=== PATIENT | female | born 1980 | race Caucasian/White ===

== ENCOUNTER → 2017-01-03 | Outpatient (CLI) | payer OTHER ==
--- NOTE | 2017-01-03 10:39 | MM ---
Reason for exam: clinical finding. Last mammogram was performed 5 years ago. History: Family history of breast cancer in maternal aunt and breast cancer in maternal grandmother. Indicated problem(s): pain in the right breast. Physical Findings: Nurse did not find any significant physical abnormalities on exam. MG Diagnostic Mammo w CAD FRIDA Bilateral CC and MLO view(s) were taken. Prior study comparison: January 10, 2012, CAD bilateral diagnostic mammogram. The breast tissue is heterogeneously dense. This may lower the sensitivity of mammography. Asymmetric breast tissue, greater in the right breast. No significant new findings when compared with previous films. These results were verbally communicated with the patient and result sheet given to the patient on 01/03/17. ASSESSMENT: Benign, BI-RAD 2 RECOMMENDATION: Routine screening mammogram of both breasts at age 42. Manage patient on a clinical basis.
--- NOTE | 2017-01-03 10:42 | USB ---
Reason for exam: clinical finding. History: Family history of breast cancer in maternal aunt and breast cancer in maternal grandmother. US Breast RT Right breast ultrasound includes all four quadrants, the retroareolar region and axilla. Finding demonstrate no cystic or solid lesion seen. These results were verbally communicated with the patient and result sheet given to the patient on 01/03/17. ASSESSMENT: Negative, BI-RAD 1 RECOMMENDATION: Routine screening mammogram of both breasts at age 42. Manage patient on a clinical basis.
== END | disposition home or self-care (01) ==
LOC: RADMAMWWP 08:50
PROVIDERS: ATTEND Internal Medicine
DX: N64.4 Mastodynia (principal); N64.89 Other specified disorders of breast
CPT/HCPCS: 76641; G0204

== ENCOUNTER 2018-01-30 23:41 | Emergency (ER) | payer OTHER ==
[2018-01-30 23:47] VITALS: BP 131/84; PULSE 100; RESP 18; TEMP 98.2
--- NOTE | 2018-01-31 00:20 | ED ---
Extremity Problem HPI - General Chief complaint: Extremity Problem,Nontraumatic Stated complaint: wrist pain Time Seen by Provider: 01/30/18 23:52 Source: patient, RN notes reviewed Mode of arrival: ambulatory Limitations: no limitations - History of Present Illness Initial comments: This is a 37-year-old female presents to the emergency department with chief complaint of wrist pain. Patient states that "the veins and mild left forearm hurt." Patient states that she is concerned for a blood clot. She states that she consistently uses a computer and keyboard. She states that she recently got a new keyboard that it has been pressing into her left wrist. She states that for the past 2 days she has noticed tenderness along the vein in her left forearm. Patient denies any specific injuries or trauma. She denies any history of blood clots. Denies fevers or chills, chest pain or shortness of breath, abdominal pain, nausea or vomiting. - Related Data Allergies Allergy/AdvReac Type Severity Reaction Status Date / Time nickel Allergy Rash/Hives Verified 01/30/18 23:47 Penicillins AdvReac Unknown Verified 01/30/18 23:47 Review of Systems ROS Statement: Those systems with pertinent positive or pertinent negative responses have been documented in the HPI. ROS Other: All systems not noted in ROS Statement are negative. Past Medical History Past Medical History: No Reported History History of Any Multi-Drug Resistant Organisms: None Reported Past Surgical History: Tubal Ligation Past Psychological History: No Psychological Hx Reported Smoking Status: Current every day smoker Past Alcohol Use History: Occasional Past Drug Use History: Marijuana General Exam - General Exam Comments Initial Comments: General: Awake and alert, well-developed; in no apparent distress. HEENT: Head atraumatic, normocephalic. Pupils are equal, round and reactive to light. Extraocular movements intact. Oropharynx moist without erythema or exudate. Neck: Supple. Normal ROM. Cardiovascular: Regular rate and rhythm. No murmurs, rubs or gallops. Chest symmetrical. Respiratory: Lungs clear to auscultation bilaterally. No wheezes, rales or rhonchi. Normal respiratory effort with no use of accessory muscles. Musculoskeletal: Normal range of motion of the left elbow and wrist. Patient experiences a "pulling sensation" with flexion and extension of the left wrist. There is tenderness along the flexor tendons in the left forearm. No erythema , swelling, warmth noted. No palpable cords. No obvious gross deformities. Sensation is intact. Radial pulses are 2+ equal and palpable bilaterally. Skin: [place], warm and dry without rashes or lesions. Neurological: Alert and oriented x3. CN II-XII grossly intact. Speech is fluent and answers are appropriate. No focal neuro deficits. Psychiatric: Normal mood and affect. No overt signs of depression or anxiety noted. Limitations: no limitations Course Vital Signs 01/30/18 23:43 Temperature 98.2 F Pulse Rate 100 Respiratory 18 Rate Blood Pressure 131/84 O2 Sat by Pulse 100 Oximetry Medical Decision Making - Medical Decision Making This is a 37-year-old female who presents to the emergency department with chief complaint of left wrist pain. She denies any specific injuries or trauma. She states that she does work at her computer and is consistently using her keyboard. She states that she recently got new keyboard that has been pressing into her left wrist. She does report a history of carpal tunnel syndrome. There is tenderness along the flexor tendons of the left forearm. No erythema, swelling or warmth noted. She is neurovascularly intact. Likely suffering from tendinitis. Recommended rest, ice, NSAIDs and compression. Vital signs are stable and patient is in no acute distress patient will be discharged home at this time. All questions answered. Disposition Clinical Impression: Tendinitis Disposition: HOME SELF-CARE Condition: Good Instructions: Tendinitis (ED), RICE Therapy (ED) Additional Instructions: Please follow up with primary care provider within 1-2 days. Return to emergency department if symptoms should worsen or any concerns arise. Is patient prescribed a controlled substance at d/c from ED?: No Referrals: Jaida River MD [Primary Care Provider] - 1-2 days Time of Disposition: 00:20
== END 2018-01-31 00:30 | disposition home or self-care (01) ==
LOC: EC 23:41
DX: M77.9 Enthesopathy, unspecified (principal); F17.200 Nicotine dependence, unspecified, uncomplicated; Z87.39 Personal history of other diseases of the musculoskeletal system and connective tissue; Z91.048 Other nonmedicinal substance allergy status; Z88.0 Allergy status to penicillin
CPT/HCPCS: 99283

== ENCOUNTER → 2018-07-07 | Outpatient (CLI) | payer OTHER ==
--- NOTE | 2018-07-08 11:51 | XR ---
First digit right hand HISTORY: Trauma and pain 2 views of the first digit of the right hand. There is some joint space loss at the carpometacarpal joint of the first digit. Alignment and bone mi neralization maintained. No fracture or dislocation. IMPRESSION: Suspect some mild osteoarthritis. MRI could be performed to evaluate for soft tissue inju ry or marrow edema as indicated.
== END ==
LOC: RADXRMAIN 16:51
PROVIDERS: ATTEND Internal Medicine
DX: M79.646 Pain in unspecified finger(s) (principal)

== ENCOUNTER → 2018-12-16 | Outpatient (CLI) | payer OTHER ==
--- NOTE | 2018-12-16 15:18 | US ---
EXAMINATION TYPE: US venous doppler duplex LE DATE OF EXAM: 12/16/2018 1:02 PM COMPARISON: NONE CLINICAL HISTORY: R22.41 localized swelling, mass and lump, right. Bilateral leg edema for 2 weeks SIDE PERFORMED: Bilateral TECHNIQUE: The lower extremity deep venous system is examined utilizing real time linear array sonog ghassan with graded compression, doppler sonography and color-flow sonography. VESSELS IMAGED: External Iliac Vein (EIV) Common Femoral Vein Deep Femoral Vein Greater Saphenous Vein * Femoral Vein Popliteal Vein Small Saphenous Vein * Proximal Calf Veins (* superficial vessels) There is normal flow, compressibility, vascular waveforms. Right Leg: No evidence of DVT Left Leg: No evidence of DVT IMPRESSION: No evident deep venous thrombosis at or above the knees, follow-up as indicated
== END | disposition home or self-care (01) ==
LOC: RADUSWWP 12:34
PROVIDERS: ATTEND Internal Medicine
DX: R22.43 Localized swelling, mass and lump, lower limb, bilateral (principal)
CPT/HCPCS: 93970

== ENCOUNTER → 2019-01-25 | Outpatient (CLI) | payer OTHER ==
--- NOTE | 2019-01-25 13:20 | ECHOF ---
Referral Reason:R22.41 bilateral leg edema MEASUREMENTS -------- HEIGHT: 175.3 cm WEIGHT: 93.0 kg BP: 120/58 RVIDd: 3.8 cm (< 3.3) IVSd: 0.9 cm (0.6 - 1.1) LVIDd: 4.3 cm (3.9 - 5.3) LVPWd: 1.2 cm (0.6 - 1.1) IVSs: 1.1 cm LVIDs: 2.9 cm LVPWs: 1.5 cm LAESV Index (A-L): 14.71 ml/m Ao Diam: 3.4 cm (2.0 - 3.7) AV Cusp: 1.7 cm (1.5 - 2.6) LA Diam: 3.4 cm (2.7 - 3.8) MV EXCURSION: 18.048 mm (> 18.000) MV EF SLOPE: 200 mm/s (70 - 150) EPSS: 0.5 cm MV E Lior: 0.88 m/s MV DecT: 176 ms MV A Lior: 0.50 m/s MV E/A Ratio: 1.78 RAP: 5.00 mmHg RVSP: 33.01 mmHg FINDINGS -------- Sinus rhythm. This was a technically adequate study. The left ventricular size is normal. There is borderline concentric left ventricular hypertrophy. There is normal global left ventricular contractility. Overall left ventricular systolic function is normal with, an EF between 60 - 65 %. The diastolic filling pattern is normal for the age of the patient E/E'6.95. The right ventricle is mild to moderately enlarged. Normal LA size by volume 22+/-6 ml/m2. The right atrial size is normal. Interatrial and interventricular septum intact. Aortic valve is trileaflet and is mildly thickened. There is no evidence of aortic regurgitation. There is no evidence of aortic stenosis. No mitral regurgitation. Mild tricuspid regurgitation present. There is no evidence of pulmonary hypertension. The right v entricular systolic pressure, as measured by Doppler, is 33.01mmHg. There is no pulmonic regurgitation present. The aortic root size is normal. The inferior vena cava is mildly dilated. There is no pericardial effusion. CONCLUSIONS -------- 1. Sinus rhythm. 2. This was a technically adequate study. 3. The left ventricular size is normal. 4. There is borderline concentric left ventricular hypertrophy. 5. There is normal global left ventricular contractility. 6. Overall left ventricular systolic function is normal with, an EF between 60 - 65 %. 7. The diastolic filling pattern is normal for the age of the patient E/E'6.95 8. The right ventricle is mild to moderately enlarged. 9. Normal LA size by volume 22+/-6 ml/m2. 10. The right atrial size is normal. 11. Interatrial and interventricular septum intact. 12. Aortic valve is trileaflet and is mildly thickened. 13. There is no evidence of aortic regurgitation. 14. There is no evidence of aortic stenosis. 15. No mitral regurgitation. 16. Mild tricuspid regurgitation present. 17. There is no evidence of pulmonary hypertension. 18. The right ventricular systolic pressure, as measured by Doppler, is 33.01mmHg. 19. There is no pulmonic regurgitation present. 20. The aortic root size is normal. 21. The inferior vena cava is mildly dilated. 22. There is no pericardial effusion. PACKAGER: Catrachita Nelson RDCS
== END | disposition home or self-care (01) ==
LOC: RADECHMAIN 11:25
PROVIDERS: ATTEND Internal Medicine
DX: I07.1 Rheumatic tricuspid insufficiency (principal)
CPT/HCPCS: 93306

== ENCOUNTER → 2019-02-18 | Outpatient (CLI) | payer OTHER ==
--- NOTE | 2019-02-18 12:40 | EST ---
EXERCISE STRESS AGE: 38 SEX: F HT: 69 WT: 202 PROTOCOL: Twin Stress Test STAGE: 2 DURATION OF EXERCISE: 5:30 HEART RATE REST: 94 BLOOD PRESSURE REST: 119/78 MAXIMUM HEART RATE ACHIEVED: 170 MAXIMUM BLOOD PRESSURE: 122/52 85% MPHR: 156 100% MPHR: 184 METS: 7.1 INDICATIONS: Abnormal Echo CLINICAL INFORMATION: Baseline EKG revealed normal sinus rhythm without significant ST changes, voltage criteria for LVH was noted. Patient walked on a standard Twin protocol for a total duration of 5 minutes 30 seconds, achieved a maximal heart rate of 170 beats per minute. Resting blood pressure was 119/78. Peak blood pressure was 122/52. Blood pressure response was somewhat blunted. There were no ST-segment changes to indicate ischemia. Patient did not have angina. Exercise capacity was limited. By EKG criteria this is a negative stress test with limited exercise capacity. Blood pressure response was somewhat blunted. The nuclear scan results which are more pertinent will be reported by the radiologist. Possibility of any underlying cardiomyopathy should be considered. Clinical correlation is suggested. DELMISL / EDMUNDON: [id number] /
== END | disposition home or self-care (01) ==
LOC: RADNMMAIN 10:22
PROVIDERS: ATTEND Family Medicine
DX: I51.7 Cardiomegaly (principal)
CPT/HCPCS: 93017

== ENCOUNTER → 2019-03-13 | Outpatient (CLI) | payer OTHER ==
--- NOTE | 2019-03-14 19:52 | CT ---
EXAMINATION TYPE: CT abdomen pelvis w con DATE OF EXAM: 03/13/2019 COMPARISON: None HISTORY: Bilateral upper abdominal pain and leg swelling x [address] DLP: 800.1 mGycm Automated exposure control for dose reduction was used. TECHNIQUE: Helical acquisition of images was performed from the lung bases through the pelvis. CONTRAST: Performed with Oral Contrast and with IV Contrast, patient injected with 100 mL of Isovue M300. FINDINGS: Lung bases are clear. There is no pleural effusion. Heart size is normal. There is no pericardial eff usion. Stomach appears normal. Liver spleen pancreas gallbladder appear normal. Bile ducts are not dilated. There is no adrenal mass. There is 1 cm cortical cyst anterior right kidney. Kidneys have normal size and contour. There is no hydronephrosis. There is no retroperitoneal adenopathy. Ureters are not dil ated. Bladder distends smoothly. Uterus is anteverted. There is no free fluid in the pelvis. There is no adnexal mass. There is no inguinal hernia. There is apparent normal contrast opacification of the iliac veins. No evidence of deep venous thrombosis. There is no mesenteric edema. There is no ascites or free air. Appendix is filled with contrast and a ppears normal. There is no sign of a bowel obstruction. IMPRESSION: NEGATIVE CT SCAN OF THE ABDOMEN PELVIS. NORMAL APPENDIX.
== END | disposition home or self-care (01) ==
LOC: RADCTMAIN 08:48
PROVIDERS: ATTEND Family Medicine
DX: R10.10 Upper abdominal pain, unspecified (principal); R19.7 Diarrhea, unspecified
CPT/HCPCS: 74177; Q9967 ×2

== ENCOUNTER → 2019-08-12 | Outpatient (CLI) | payer OTHER ==
[2019-08-12 12:30] LABS: Basophils % (A) 1 %; Eosinophils # (A) 0.1 k/uL (0-0.7); Eosinophils % (A) 1 %; HCT 49.3 % (34.0-46.0); HGB 15.8 gm/dL (11.4-16.0); Lymphocytes # (A) 1.6 k/uL (1.0-4.8); Lymphocytes % (A) 25 %; MCH 30.4 pg (25.0-35.0); MCV 95.1 fL (80.0-100.0); Mean Platelet Volume 7.9; Monocytes # (A) 0.4 k/uL (0-1.0); Monocytes % (A) 6 %; Neutrophils # (A) 4.1 k/uL (1.3-7.7); Neutrophils % (A) 66 %; Platelet Count 146 k/uL (150-450); RBC 5.19 m/uL (3.80-5.40); RDW 12.7 % (11.5-15.5); WBC 6.2 k/uL (3.8-10.6)
[2019-08-12 19:59] LABS: Chol/HDL Ratio 2.58; LDL Cholesterol,Calculated 109.2 mg/dL (0.0-131.0); VLDL Calculation 15.8 mg/dL (5.00-40.00)
== END ==
LOC: LABWHC1 10:52
PROVIDERS: ATTEND Family Medicine
DX: I51.7 Cardiomegaly (principal); F41.9 Anxiety disorder, unspecified; R10.11 Right upper quadrant pain; R19.7 Diarrhea, unspecified
CPT/HCPCS: 36415; 80061; 85025

== ENCOUNTER → 2019-08-18 | Outpatient (CLI) | payer OTHER ==
--- NOTE | 2019-08-18 07:47 | US ---
EXAMINATION TYPE: US abdomen complete DATE OF EXAM: 08/18/2019 COMPARISON: CT 817 CLINICAL HISTORY: R10.11 RUQ ABD PAIN. RUQ pain, NPO EXAM MEASUREMENTS: Liver Length: 16.8 cm Gallbladder Wall: 0.2 cm CBD: 0.3 cm Spleen: 9.0 cm Right Kidney: 11.0 x 3.7 x 4.9 cm Left Kidney: 10.6 x 4.2 x 4.3 cm Pancreas: Limited by overlying bowel gas Liver: wnl Gallbladder: wnl Evidence for sonographic Lopez's sign: neg CBD: wnl Spleen: wnl Right Kidney: No hydronephrosis or masses seen Left Kidney: No hydronephrosis or masses seen Upper IVC: wnl Abd Aorta: No AAA visualized IMPRESSION: 1. No acute process as visualized.
== END | disposition home or self-care (01) ==
LOC: RADUSWWP 06:49
PROVIDERS: ATTEND Family Medicine
DX: R10.11 Right upper quadrant pain (principal); R14.0 Abdominal distension (gaseous)
CPT/HCPCS: 76700

== ENCOUNTER → 2020-12-29 | Day surgery (SDC) | payer OTHER ==
[2020-12-26 15:18] VITALS: BMI 31.0
[~2020-12-29] MED LIST: GLYCOPYRROLATE 0.2 MG/ML 2 ML VIAL ONE; KETAMINE 10 MG/ML 20 ML VIAL ONE; LACTATED RINGERS 1,000 ML IV SCH; LIDOCAINE 1% (10MG/ML) FOR IV START INTRADERMA ONE; LIDOCAINE 1% INJ 10MG/ML (20 ML MDV) ONE; PROPOFOL 10 MG/ML 20 ML VIAL IV ONE
[2020-12-29 08:25] VITALS: RESP 16; TEMP 98.1
--- NOTE | 2020-12-29 10:27 | P.GSHP ---
History of Present Illness H&P Date: 12/29/20 Chief Complaint: GERD, rectal bleeding This a 32-year-old female who's had complaints of severe.. She's also had intermittent rectal bleeding. She presents today for EGD and colonoscopy Past Medical History Past Medical History: Asthma, GERD/Reflux Additional Past Medical History / Comment(s): lymphedema beryl legs and beryl shoulders-wears compression stockings. autoimmune disease. asthma as child, last asthma attack age 14. "insufficient veins veins collapse and IV's pop out". irregular heart beat History of Any Multi-Drug Resistant Organisms: None Reported Past Surgical History: Section, Tubal Ligation Past Anesthesia/Blood Transfusion Reactions: No Reported Reaction Smoking Status: Former smoker - Past Family History Mother Family Medical History: GERD/Reflux, Renal Disease Additional Family Medical History / Comment(s): " kidney failure from medication that was used for acid reflux" Medications and Allergies Home Medications Medication Instructions Recorded Confirmed Type No Known Home Medications 12/26/20 12/29/20 History Allergies Allergy/AdvReac Type Severity Reaction Status Date / Time nickel Allergy Rash/Hives Verified 12/26/20 15:07 Penicillins AdvReac Unknown Verified 12/26/20 15:07 Surgical - Exam Vital Signs Temp Pulse Resp BP Pulse Ox 98.1 F 110 H 16 135/83 95 12/29/20 08:19 12/29/20 08:19 12/29/20 08:19 12/29/20 08:19 12/29/20 08:19 - General well developed, well nourished, no distress - Eyes PERRL - ENT normal pinna - Neck no masses - Respiratory normal expansion - Cardiovascular Rhythm: regular - Abdomen Abdomen: soft, non tender Assessment and Plan Assessment: GERD, rectal bleeding. We'll perform EGD and colonoscopy.
--- NOTE | 2020-12-29 10:52 | P.OP ---
Date of Procedure: 12/29/20 Preoperative Diagnosis: GERD Rectal bleeding Postoperative Diagnosis: Mild antral gastritis No significant hiatal hernia No significant esophagitis Normal colon Procedure(s) Performed: EGD Colonoscopy Anesthesia: MAC Surgeon: Carlos Conrad Pathology: other (Esophagus, antrum) Condition: stable Disposition: PACU Description of Procedure: Patient's placed on the endoscopy table in the lateral position. She received IV sedation. The gastric was placed oropharynx passed in the esophagus and stomach. The scope was then placed through the pylorus. The first and second portion of the duodenum appeared normal. Scope was then brought back the antrum this was mildly inflamed. A biopsies performed. The scope was then retroflexed and the remainder of the stomach appeared normal. The GE junction was at 40 cm. There was no significant hiatal hernia. The distal esophagus appeared normal. Due to the patient's symptoms of GERD a biopsies performed. The proximal esophagus appeared normal. The scope was withdrawn for patient. Next digital rectal exam was performed which revealed no abnormalities. Flexible colonoscope was then placed patient anus and passed throughout the entire colon. The ileocecal valve was visualized. The cecum, ascending and transverse colon appeared normal. The descending and sigmoid colon appeared normal. The scope was then brought back the rectum and this was normal. Scope withdrawn for patient. There is no evidence of any rectal bleeding. If resume the patient may have had some anal trauma when she had her rectal bleeding. There was no source of bleeding on today's examination.
[2020-12-29 11:12] VITALS: BP 100/67; PULSE 84
--- NOTE | 2020-12-29 17:37 | NM ---
EXAMINATION TYPE: NM hepatobiliary w EF DATE OF EXAM: 12/29/2020 COMPARISON: NONE HISTORY: Abnormal pain TECHNIQUE: After the intravenous administration of 4.3 mCi Tc 99m Mebrofenin hepatobiliary scintigrap hy is performed. Immediate images post injection. FINDINGS: There is satisfactory initial accumulation of tracer by the liver. The gallbladder is visualized wit hin 18 minutes. The small bowel activity is noted within 60 minutes. At one hour 8 ounces of oral e nsure plus is given to mimic CCK and gallbladder ejection fraction is calculated at 76 %, in the norm al range. Therefore there is no scintigraphic evidence of cystic or common bile duct obstruction to suggest acute cholecystitis or gallbladder dyskinesia. IMPRESSION: No focal liver defect. Normal gallbladder ejection fraction of 76%.
== END | disposition home or self-care (01) ==
LOC: ORWHC2ENDO 07:31
PROVIDERS: ATTEND Surgery
DX: K29.50 Unspecified chronic gastritis without bleeding (principal); K21.00 Gastro-esophageal reflux disease with esophagitis, without bleeding; K62.5 Hemorrhage of anus and rectum; I89.0 Lymphedema, not elsewhere classified; I87.2 Venous insufficiency (chronic) (peripheral); Z98.891 History of uterine scar from previous surgery; Z98.51 Tubal ligation status; Z87.891 Personal history of nicotine dependence; Z83.79 Family history of other diseases of the digestive system; Z84.1 Family history of disorders of kidney and ureter; Z88.0 Allergy status to penicillin; Z91.048 Other nonmedicinal substance allergy status
CPT/HCPCS: 81025; 88305; 78226; 45378; 43239; A9537; J2001; J2704

== ENCOUNTER 2021-02-19 06:03 | Day surgery (SDC) | payer OTHER ==
[2021-02-15 12:12] VITALS: BMI 31.3
[~2021-02-19 06:03] MED LIST changes: +ACETAMINOPHEN TAB 500 MG TAB PO PRN; +DEXAMETHASONE SOD PHOSPHATE 4 MG/ML 1 ML VIAL IV ONE; -GLYCOPYRROLATE 0.2 MG/ML 2 ML VIAL ONE; +HEPARIN SODIUM,PORCINE/PF 5,000 UNIT/0.5 ML SYRINGE SQ PRN; +HYDROmorphone 0.5 MG/0.5 ML SYRINGE IVP PRN; -KETAMINE 10 MG/ML 20 ML VIAL ONE; -LIDOCAINE 1% (10MG/ML) FOR IV START INTRADERMA ONE; +LIDOCAINE 1% (10MG/ML) FOR IV START INTRADERMA PRN; -LIDOCAINE 1% INJ 10MG/ML (20 ML MDV) ONE; +METOCLOPRAMIDE 5 MG/ML 2 ML VIAL IVP PRN; +MIDAZOLAM 2 MG/2 ML VIAL IV PRN; +ONDANSETRON 4 MG/2 ML VIAL IVP ONE; -PROPOFOL 10 MG/ML 20 ML VIAL IV ONE; +SCOPOLAMINE 1.5MG/72HR PATCH TRANSDERM ONE; +fentaNYL (PF) 50 MCG/ML 2 ML AMP IVP PRN
[2021-02-19] MEDS ORDERED: SUCCINYLCHOLINE CHLORIDE 100 MG/5 ML SYR IV ONE (07:45)
[2021-02-19] MEDS ORDERED: LIDOCAINE 1% INJ 10MG/ML (20 ML MDV) ONE (07:45)
[2021-02-19] MEDS ORDERED: KETOROLAC 15 MG/ML 1 ML VIAL ONE (07:45)
[2021-02-19] MEDS ORDERED: PROPOFOL 10 MG/ML 20 ML VIAL IV ONE (07:45)
[2021-02-19] MEDS ORDERED: PHENYLEPHRINE-0.9% NACL SYG 1,000 MCG/10 ML SYRINGE ONE (07:45)
[2021-02-19] MEDS ORDERED: MIDAZOLAM 2 MG/2 ML VIAL ONE (07:45)
[2021-02-19] MEDS ORDERED: GLYCOPYRROLATE 0.2 MG/ML 2 ML VIAL ONE (07:45)
[2021-02-19] MEDS ORDERED: ROCURONIUM 10 MG/ML (5 ML VIAL) IV ONE (07:45)
[2021-02-19] MEDS ORDERED: fentaNYL (PF) 50 MCG/ML 2 ML AMP ONE (07:45)
[2021-02-19] MEDS ORDERED: BUPIVACAINE (PF) 0.5% 30 ML VIAL SQ ONE (08:08)
--- NOTE | 2021-02-19 08:23 | P.GSHP ---
History of Present Illness H&P Date: 02/19/21 Chief Complaint: Right upper quadrant pain This is a 32-year-old female who presents today for laparoscopic cholecystectomy. Patient's had complaints of abdominal pain. Her recent HIDA scan shows abnormal ejection fraction consistent with chronic cholecystitis 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 asthma as child, last asthma attack age 14. "insufficient veins veins collapse and IV's pop out". irregular heart beat History of Any Multi-Drug Resistant Organisms: None Reported Past Surgical History: Section, Tubal Ligation Past Anesthesia/Blood Transfusion Reactions: No Reported Reaction Smoking Status: Former smoker - Past Family History Mother Family Medical History: Cancer, GERD/Reflux, Renal Disease Additional Family Medical History / Comment(s): " kidney failure from medication that was used for acid reflux". cervical cancer x3 Medications and Allergies Home Medications Medication Instructions Recorded Confirmed Type No Known Home Medications 12/26/20 02/15/21 History Allergies Allergy/AdvReac Type Severity Reaction Status Date / Time nickel Allergy Rash/Hives Verified 02/19/21 06:33 Penicillins AdvReac Unknown Verified 02/19/21 06:33 Surgical - Exam Vital Signs Temp Pulse Resp BP Pulse Ox 98.0 F 102 H 16 130/70 99 02/19/21 06:38 02/19/21 06:38 02/19/21 06:38 02/19/21 06:38 02/19/21 06:38 - General well developed, well nourished, no distress - Eyes PERRL - ENT normal pinna - Neck no masses - Respiratory normal expansion - Cardiovascular Rhythm: regular - Abdomen Abdomen: soft, non tender Assessment and Plan Assessment: Right upper quadrant pain. We'll perform laparoscopic cholecystectomy
--- NOTE | 2021-02-19 08:24 | P.OP ---
Date of Procedure: 02/19/21 Preoperative Diagnosis: Cholecystitis Postoperative Diagnosis: Cholecystitis Procedure(s) Performed: Laparoscopic cholecystectomy Anesthesia: MARBELLA Surgeon: Carlos Conrad Estimated Blood Loss (ml): 5 Pathology: other (Gallbladder) Condition: stable Disposition: PACU Description of Procedure: The patient was placed on the operating table. The patient received a general endotracheal tube anesthesia. The patients abdomen was prepped and draped in the usual sterile fashion. Through an infraumbilical stab incision, the fascia of the anterior abdominal wall was grasped with a pair of Kochers and then the Veress needle was placed in the peritoneal cavity. Position of the Veress needle was confirmed with positive drop test. The abdomen was then insufflated. After adequate insufflation, the 10 mm trocar was placed in the peritoneal cavity. Following this the laparoscope was placed in the peritoneal cavity. The patient was placed in the head-up, right side up position and then a 5 mm trocar was placed in the right lateral and right subcostal position under direct visualization. A 8 mm trocar was placed in the epigastric position. The gallbladder was grasped in the fundus and infundibulum. Traction on the gallbladder was placed in the lateral and the cephalad positions. The triangle of Calot was visualized.. The cystic duct was bluntly dissected until the union of the cystic duct and common bile duct was seen. A critical view of safety was achieved. The cystic duct was then divided and sealed with the Harmonic scissors. A PDS Endoloop was then placed throughout the cystic duct stump. The cystic artery divided and sealed with the Harmonic scissors. The gallbladder was then removed from the liver bed using Harmonic scissors. The gallbladder was then extracted through the epigastric port site. Operative field was checked for any bleeding spots and Harmonic scissors was used to coagulate the liver bed. The abdomen was irrigated. The trocars were removed. The skin was closed using interrupted 3-0 Vicryl suture. Dermabond dressing were applied. The patient tolerated the procedure well.
[2021-02-19 08:30] VITALS: TEMP 97.8
[2021-02-19 09:03] VITALS: RESP 18
[2021-02-19 09:45] VITALS: BP 110/72; PULSE 78
== END 2021-02-19 09:59 | disposition home or self-care (01) ==
LOC: OR 06:03
PROVIDERS: ATTEND Surgery
DX: K81.1 Chronic cholecystitis (principal); K21.9 Gastro-esophageal reflux disease without esophagitis; R60.0 Localized edema; I87.2 Venous insufficiency (chronic) (peripheral); Z98.891 History of uterine scar from previous surgery; Z98.51 Tubal ligation status; Z87.09 Personal history of other diseases of the respiratory system; Z87.891 Personal history of nicotine dependence; Z80.49 Family history of malignant neoplasm of other genital organs; Z84.1 Family history of disorders of kidney and ureter; Z88.0 Allergy status to penicillin; Z91.048 Other nonmedicinal substance allergy status
CPT/HCPCS: 81025; 88304; 47562; J2250; J1100; J0690; J2405; J2001; J3010; J1885; J2370; J0330; J2704; J1644

== ENCOUNTER → 2022-01-07 | Outpatient (CLI) | payer OTHER ==
--- NOTE | 2022-01-07 08:05 | US ---
EXAMINATION TYPE: US thyroid st tissue head/neck DATE OF EXAM: 01/07/2022 COMPARISON: NONE CLINICAL HISTORY: R59.0 LOCALIZED ENLARGED LYMPH NODES. Pt states multiple, palpable lumps bilateral lateral neck x 4-5 months Bilateral neck scanned, no evidence of lymphadenopathy, multiple normal appearing lymph nodes in area s of pt's palpables, largest right lateral neck lymph node= 0.5 cm AP measurement, largest left later al neck lymph node= 0.6 cm AP measurement IMPRESSION: 1. Multiple sub-Centimeter lymph nodes seen.
== END | disposition home or self-care (01) ==
LOC: RADUSWWP 07:34
PROVIDERS: ATTEND Otolaryngology
DX: R22.1 Localized swelling, mass and lump, neck (principal)
CPT/HCPCS: 76536

== ENCOUNTER → 2022-04-09 | Outpatient (CLI) | payer OTHER ==
--- NOTE | 2022-04-10 15:15 | MM ---
Reason for Exam: Screening (asymptomatic). Last mammogram was performed 5 year(s) and 3 month(s) ago. Patient History: Menarche at age 12. First Full-Term at age 22. Maternal grandmother had breast cancer. Maternal aunt had breast cancer. Last menstrual period: 04/01/2022 Risk Values: Radha 5 year model risk: 0.5%. NCI Lifetime model risk: 9.9%. Prior Study Comparison: 01/10/2012 Bilateral Diagnostic Mammogram, [facility]. 01/03/2017 Bilateral Diagnostic Mammogram, [facility]. Tissue Density: The breast tissue is heterogeneously dense. This may lower the sensitivity of mammography. Findings: Analyzed By CAD. There is no suspicious group of microcalcifications or new suspicious mass in either breast. Overall Assessment: Negative, BI-RAD 1 Management: Screening Mammogram of both breasts in 1 year. A clinical breast exam by your physician is recommended on an annual basis and results should be correlated with mammographic findings. Electronically signed and approved by: Dereck Hoffmann DO
== END | disposition home or self-care (01) ==
LOC: RADMAMWWP 07:44
PROVIDERS: ATTEND Student in an Organized Health Care Education/Training Program
DX: Z12.31 Encounter for screening mammogram for malignant neoplasm of breast (principal); Z80.3 Family history of malignant neoplasm of breast
CPT/HCPCS: 77067

== ENCOUNTER 2022-10-22 21:05 | Emergency (ER) | payer OTHER ==
[2022-10-22 21:10] VITALS: RESP 20; TEMP 98.5
[2022-10-22] MEDS ORDERED: SODIUM CHLORIDE 0.9% 500 ML 500 ML IV ONE (21:25)
--- NOTE | 2022-10-22 21:34 | ED ---
General Adult HPI - General Chief complaint: Chest Pain Stated complaint: Chest Discomfort Time Seen by Provider: 10/22/22 21:10 Source: patient, RN notes reviewed, old records reviewed Mode of arrival: ambulatory Limitations: no limitations - History of Present Illness Initial comments: 42-year-old female presenting for evaluation of chest discomfort, palpitation and dizziness. Symptoms began just prior to arrival. The symptoms of chest pain are resolved at the time of initial evaluation, patient stating that it lasted only a brief moment. No vomiting. No abdominal pain. This was associated with some shortness of breath. No fever. No cough. - Related Data Previous Rx's Medication Instructions Recorded Acetaminophen Tab [Tylenol] 650 mg PO Q6H #30 tab 02/19/21 Docusate [Colace] 100 mg PO BID #20 capsule 02/19/21 Ibuprofen [Motrin] 600 mg PO Q6HR PRN #40 tab 02/19/21 oxyCODONE HCL [OxyIR] 5 mg PO Q6H PRN 3 Days #10 tab 02/19/21 Allergies Allergy/AdvReac Type Severity Reaction Status Date / Time nickel Allergy Rash/Hives Verified 10/22/22 21:10 Penicillins AdvReac Unknown Verified 10/22/22 21:10 Review of Systems ROS Statement: Those systems with pertinent positive or pertinent negative responses have been documented in the HPI. ROS Other: All systems not noted in ROS Statement are negative. 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 asthma as child, last asthma attack age 14. "insufficient veins veins collapse and IV's pop out". irregular heart beat History of Any Multi-Drug Resistant Organisms: None Reported Past Surgical History: Section, Tubal Ligation Past Anesthesia/Blood Transfusion Reactions: No Reported Reaction Past Psychological History: Anxiety Smoking Status: Former smoker Past Alcohol Use History: Occasional Past Drug Use History: None Reported - Past Family History Mother Family Medical History: Cancer, GERD/Reflux, Renal Disease Additional Family Medical History / Comment(s): " kidney failure from medication that was used for acid reflux". cervical cancer x3 General Exam Limitations: no limitations General appearance: alert, in no apparent distress Head exam: Present: atraumatic, normocephalic Eye exam: Present: normal appearance Neck exam: Present: normal inspection Respiratory exam: Present: normal lung sounds bilaterally. Absent: respiratory distress, wheezes Cardiovascular Exam: Present: normal rhythm, tachycardia GI/Abdominal exam: Present: soft. Absent: distended, tenderness, guarding, rebound Extremities exam: Absent: calf tenderness Neurological exam: Present: alert, oriented X3, CN II-XII intact. Absent: motor sensory deficit Psychiatric exam: Present: normal affect, normal mood Skin exam: Present: warm, dry, intact. Absent: cyanosis, diaphoretic Course Vital Signs 10/22/22 10/22/22 21:06 21:52 Temperature 98.5 F Pulse Rate 115 H 88 Respiratory 20 Rate Blood Pressure 145/73 O2 Sat by Pulse 96 Oximetry EKG Findings - EKG Comments: EKG Findings:: Sinus tachycardia rate of 106, [place] interval 125, QRS duration 92, QTC 394, no ST segment elevation, T waves are upright - EKG Results: EKG: interpreted by LOKI Medical Decision Making - Medical Decision Making Was pt. sent in by a medical professional or institution ([facility] Mccollum, SAW TAILER, urgent care, hospital, or shelter...) When possible be specific @ -[No] Did you speak to anyone other than the patient for history (EMS, parent, family, police, friend...)? What history was obtained from this source @ -[No] Did you review nursing and triage notes (agree or disagree)? Why? @ -[I reviewed and agree with nursing and triage notes] Were old charts reviewed (outside hosp., previous admission, EMS record, old EKG, old radiological studies, urgent care reports/EKG's, shelter records)? Report findings @ -[No old charts were reviewed Differential Diagnosis (chest pain, altered mental status, abdominal pain women, abdominal pain men, vaginal bleeding, weakness, fever, dyspnea, syncope, headache, dizziness, GI bleed, back pain, seizure, CVA, palpatations, mental health, musculoskeletal)? @ -Differential Palpitations Ventricular arrhythmias, atrial arrhythmias, myocardial infarction, anemia, thyrotoxicosis, electrolyte imbalance, hypokalemia, pulmonary embolism, pulmonary disease, drugs, alcohol, anxiety, stress.... This is not meant to be an all-inclusive list. EKG interpreted by me (3pts min.). @ -[As above] X-rays interpreted by me (1pt min.). @ -Chest x-ray reviewed by myself, clear without acute findings CT interpreted by me (1pt min.). @ -[None done] U/S interpreted by me (1pt. min.). @ -[None done] What testing was considered but not performed or refused? (CT, X-rays, U/S, labs)? Why? @ -[None] What meds were considered but not given or refused? Why? @ -[None] Did you discuss the management of the patient with other professionals (professionals i.e. , PA, SAW TAILER, lab, RT, psych nurse, social secretary, loading unit operator seating, teacher, safety instruction police officer, correctional casework specialist)? Give summary @ -[No] Was smoking cessation discussed for >3mins.? @ -[No] Was critical care preformed (if so, how long)? @ -[No] Were there social determinants of health that impacted care today? How? (Homelessness, low income, unemployed, alcoholism, drug addiction, transportation, low edu. Level, literacy, decrease access to med. care, prison, rehab)? @ -[No] Was there de-escalation of care discussed even if they declined (Discuss DNR or withdrawal of care, Hospice)? DNR status @ -[No] What co-morbidities impacted this encounter? (DM, HTN, Smoking, COPD, CAD, Cancer, CVA, ARF, Chemo, Hep., AIDS, mental health diagnosis, sleep apnea, morbid obesity)? @ -[None] Was patient admitted / discharged? Hospital course, mention meds given and route, prescriptions, significant lab abnormalities, going to OR and other pertinent info. @ -6-year-old female with present with an episode of palpitation, dyspnea and chest discomfort. Symptoms resolved at the time my evaluation. Workup included chest x-ray, EKG, laboratory testing cleaning CBC, CMP, d-dimer, troponin. Testing is unremarkable. No definitive diagnosis is made at this time but the patient is feeling completely better vital signs are stable. She is given strict return parameters. Undiagnosed new problem with uncertain prognosis? @ -[No] Drug Therapy requiring intensive monitoring for toxicity (Heparin, Nitro, Insulin, Cardizem)? @ -[No] Were any procedures done? @ -[No] Diagnosis/symptom? @Palpitation Acute, or Chronic, or Acute on Chronic? @ -Acute Uncomplicated (without systemic symptoms) or Complicated (systemic symptoms)? @ -Uncomplicated Side effects of treatment? @ -[No Exacerbation, Progression, or Severe Exacerbation? @ -[No] Poses a threat to life or bodily function? How? (Chest pain, USA, CT, pneumonia, PE, COPD, DKA, ARF, appy, cholecystitis, CVA, Diverticulitis, Homicidal, Suicidal, threat to staff... and all critical care pts) @ -Yes, chest pain, palpitation - Lab Data Result diagrams: 10/22/22 21:25 10/22/22 21:25 Lab Results 10/22/22 10/22/22 10/22/22 Range/Units 21:25 21:25 21:25 WBC 7.8 (3.8-10.6) k/uL RBC 4.69 (3.80-5.40) m/uL Hgb 14.1 (11.4-16.0) gm/dL Hct 43.1 (34.0-46.0) % MCV 91.8 (80.0-100.0) fL MCH 30.1 (25.0-35.0) pg MCHC 32.8 (31.0-37.0) g/dL RDW 13.2 (11.5-15.5) % Plt Count 175 (150-450) k/uL MPV 7.3 Neutrophils % 66 % Lymphocytes % 25 % Monocytes % 6 % Eosinophils % 1 % Basophils % 0 % Neutrophils # 5.1 (1.3-7.7) k/uL Lymphocytes # 2.0 (1.0-4.8) k/uL Monocytes # 0.5 (0-1.0) k/uL Eosinophils # 0.1 (0-0.7) k/uL Basophils # 0.0 (0-0.2) k/uL PT 10.1 (9.0-12.0) sec INR 0.9 (<1.2) APTT 24.2 (22.0-30.0) sec D-Dimer 0.50 (<0.60) mg/L FEU Sodium 138 (137-145) mmol/L Potassium 4.2 (3.5-5.1) mmol/L Chloride 107 (98-107) mmol/L Carbon Dioxide 23 (22-30) mmol/L Anion Gap 8 mmol/L BUN 22 H (7-17) mg/dL Creatinine 0.93 (0.52-1.04) mg/dL Est GFR (CKD-EPI)AfAm 90 (>60 ml/min/1.73 sqM) Est GFR (CKD-EPI)NonAf 78 (>60 ml/min/1.73 sqM) Glucose 102 H (74-99) mg/dL Calcium 9.1 (8.4-10.2) mg/dL Magnesium 2.1 (1.6-2.3) mg/dL Total Bilirubin 0.5 (0.2-1.3) mg/dL AST 21 (14-36) U/L ALT 15 (4-34) U/L Alkaline Phosphatase 59 (38-126) U/L Troponin I (0.000-0.034) ng/mL Total Protein 7.0 (6.3-8.2) g/dL Albumin 4.2 (3.5-5.0) g/dL Lipase 190 (23-300) U/L 10/22/22 Range/Units 21:25 WBC (3.8-10.6) k/uL RBC (3.80-5.40) m/uL Hgb (11.4-16.0) gm/dL Hct (34.0-46.0) % MCV (80.0-100.0) fL MCH (25.0-35.0) pg MCHC (31.0-37.0) g/dL RDW (11.5-15.5) % Plt Count (150-450) k/uL MPV Neutrophils % % Lymphocytes % % Monocytes % % Eosinophils % % Basophils % % Neutrophils # (1.3-7.7) k/uL Lymphocytes # (1.0-4.8) k/uL Monocytes # (0-1.0) k/uL Eosinophils # (0-0.7) k/uL Basophils # (0-0.2) k/uL PT (9.0-12.0) sec INR (<1.2) APTT (22.0-30.0) sec D-Dimer (<0.60) mg/L FEU Sodium (137-145) mmol/L Potassium (3.5-5.1) mmol/L Chloride (98-107) mmol/L Carbon Dioxide (22-30) mmol/L Anion Gap mmol/L BUN (7-17) mg/dL Creatinine (0.52-1.04) mg/dL Est GFR (CKD-EPI)AfAm (>60 ml/min/1.73 sqM) Est GFR (CKD-EPI)NonAf (>60 ml/min/1.73 sqM) Glucose (74-99) mg/dL Calcium (8.4-10.2) mg/dL Magnesium (1.6-2.3) mg/dL Total Bilirubin (0.2-1.3) mg/dL AST (14-36) U/L ALT (4-34) U/L Alkaline Phosphatase (38-126) U/L Troponin I <0.012 (0.000-0.034) ng/mL Total Protein (6.3-8.2) g/dL Albumin (3.5-5.0) g/dL Lipase (23-300) U/L Disposition Clinical Impression: Palpitations Disposition: HOME SELF-CARE Condition: Good Instructions (If sedation given, give patient instructions): Heart Palpitations (ED) Is patient prescribed a controlled substance at d/c from ED?: No Referrals: Marge Marinelli [Primary Care Provider] - 1-2 days Time of Disposition: 22:36
--- NOTE | 2022-10-22 21:52 | XR ---
EXAMINATION TYPE: XR chest 2V DATE OF EXAM: 10/22/2022 COMPARISON: NONE HISTORY: Chest pain TECHNIQUE: 2 view FINDINGS: Heart and mediastinum are normal. Lungs are clear. Diaphragm is normal. Bony thorax is norm al. IMPRESSION: Normal chest. Normal heart.
[2022-10-22 22:04] LABS: Basophils % (A) 0 %; Eosinophils # (A) 0.1 k/uL (0-0.7); Eosinophils % (A) 1 %; HCT 43.1 % (34.0-46.0); HGB 14.1 gm/dL (11.4-16.0); Lymphocytes % (A) 25 %; MCH 30.1 pg (25.0-35.0); MCHC 32.8 g/dL (31.0-37.0); MCV 91.8 fL (80.0-100.0); Mean Platelet Volume 7.3; Monocytes # (A) 0.5 k/uL (0-1.0); Monocytes % (A) 6 %; Neutrophils # (A) 5.1 k/uL (1.3-7.7); Neutrophils % (A) 66 %; Platelet Count 175 k/uL (150-450); RBC 4.69 m/uL (3.80-5.40); RDW 13.2 % (11.5-15.5); WBC 7.8 k/uL (3.8-10.6)
[2022-10-22 22:14] LABS: Albumin 4.2 g/dL (3.5-5.0); Calcium 9.1 mg/dL (8.4-10.2); Magnesium 2.1 mg/dL (1.6-2.3); Potassium 4.2 mmol/L (3.5-5.1); Total Bilirubin 0.5 mg/dL (0.2-1.3)
[2022-10-22 22:21] LABS: INR 0.9 (<1.2); Partial Thromboplastin Time 24.2 sec (22.0-30.0); Prothrombin Time 10.1 sec (9.0-12.0)
[2022-10-22 22:45] VITALS: BP 128/64; PULSE 87
== END 2022-10-22 22:47 | disposition home or self-care (01) ==
LOC: EC 21:05
DX: R00.2 Palpitations (principal); J45.909 Unspecified asthma, uncomplicated; F41.9 Anxiety disorder, unspecified; Z87.891 Personal history of nicotine dependence; Z88.0 Allergy status to penicillin; Z88.8 Allergy status to other drugs, medicaments and biological substances; Z79.899 Other long term (current) drug therapy
CPT/HCPCS: 36415; 71046; 80053; 83690; 83735; 84484; 85025; 85379; 85610; 85730; 93005; 96360; 99285

== ENCOUNTER 2025-02-18 03:52 | Emergency (ER) | payer OTHER ==
[2025-02-18] MEDS: SODIUM CHLORIDE 0.9% 1,000 ML IV STA (04:38)
[2025-02-18 04:41] LABS: Basophils # (A) 0.04 10*3/uL (0.00-0.10); Basophils % (A) 0.5 %; Eosinophils # (A) 0.07 10*3/uL (0.04-0.35); Eosinophils % (A) 0.9 %; HCT 40.5 % (37.2-46.3); HGB 13.7 g/dL (12.0-15.0); Lymphocytes # (A) 0.88 10*3/uL (0.90-5.00); Lymphocytes % (A) 11.2 %; MCH 29.0 pg (27.0-32.0); MCHC 33.8 g/dL (32.0-37.0); MCV 85.8 fL (80.0-97.0); Monocytes # (A) 0.50 10*3/uL (0.20-1.00); Monocytes % (A) 6.4 %; Neutrophils # (A) 6.33 10*3/uL (1.80-7.70); Neutrophils % (A) 80.9 %; Platelet Count 195 10*3/uL (140-440); RBC 4.72 10*6/uL (4.10-5.20); RDW 13.6 % (11.5-14.5); WBC 7.83 10*3/uL (4.50-10.00)
--- NOTE | 2025-02-18 04:42 | ED ---
General Adult HPI - General Chief complaint: Abdominal Pain Stated complaint: Abd pain and cramping Time Seen by Provider: 02/18/25 04:01 Source: patient Mode of arrival: ambulatory Limitations: no limitations - History of Present Illness Initial comments: Dictation was produced using [employer] dictation software. please excuse any grammatical, word or spelling errors. Chief Complaint: 44-year-old female presents with abdominal pain History of Present Illness: Patient 44-year-old female presents emergency department abdominal pain. Patient has history of cholecystectomy states that for the last 3 to 4 days she has had intermittent episodes of abdominal pain. Patient states that her pain is in the periumbilical area. She has had cramping and bilious diarrhea. Denies any fever chills or night sweats. The ROS documented in this emergency department record has been reviewed and confirmed by me. Those systems with pertinent positive or negative responses have been documented in the HPI. All other systems are other negative and/or noncontributory. - Related Data Previous Rx's Medication Instructions Recorded Acetaminophen Tab [Tylenol] 650 mg PO Q6H #30 tab 02/19/21 Docusate [Colace] 100 mg PO BID #20 capsule 02/19/21 Ibuprofen [Motrin] 600 mg PO Q6HR PRN #40 tab 02/19/21 oxyCODONE HCL [OxyIR] 5 mg PO Q6H PRN 3 Days #10 tab 02/19/21 Allergies Allergy/AdvReac Type Severity Reaction Status Date / Time nickel Allergy Rash/Hives Verified 10/22/22 21:10 Penicillins AdvReac Unknown Verified 10/22/22 21:10 Borac Acid AdvReac Nausea & Uncoded 02/18/25 04:02 Vomiting & Diarrhea Review of Systems ROS Statement: Those systems with pertinent positive or pertinent negative responses have been documented in the HPI. ROS Other: All systems not noted in ROS Statement are negative. 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 asthma as child, last asthma attack age 14. "insufficient veins veins collapse and IV's pop out". irregular heart beat History of Any Multi-Drug Resistant Organisms: None Reported Past Surgical History: Section, Tubal Ligation Past Anesthesia/Blood Transfusion Reactions: No Reported Reaction Past Psychological History: Anxiety Smoking Status: Former smoker Past Alcohol Use History: Occasional Past Drug Use History: None Reported - Past Family History Mother Family Medical History: Cancer, GERD/Reflux, Renal Disease Additional Family Medical History / Comment(s): " kidney failure from medication that was used for acid reflux". cervical cancer x3 General Exam - General Exam Comments Initial Comments: PHYSICAL EXAM: General Impression: Alert and oriented x3, acute distress secondary pain HEENT: Normocephalic atraumatic, extra-ocular movements intact, pupils equal and reactive to light bilaterally, mucous membranes moist. Cardiovascular: Heart regular rate and rhythm Chest: Able to complete full sentences, no retractions, no tachypnea Abdomen: abdomen soft, palpatory tenderness to the periumbilical area, non- distended, no organomegaly Musculoskeletal: Pulses present and equal in all extremities, no peripheral edema Motor: no focal deficits noted Neurological: CN II-XII grossly intact, no focal motor or sensory deficits noted Skin: Intact with no visualized rashes Psych: Normal affect and mood Limitations: no limitations Course Vital Signs 02/18/25 02/18/25 03:56 06:44 Temperature 97.8 F Pulse Rate 110 H 85 Respiratory 22 18 Rate Blood Pressure 129/93 116/64 O2 Sat by Pulse 100 99 Oximetry Medical Decision Making - Medical Decision Making Was pt. sent in by a medical professional or institution (, PA, ABORIGINAL EDUCATION WORKER COORDINATOR, urgent care, hospital, or long term...) When possible be specific @ -No Did you speak to anyone other than the patient for history (EMS, parent, family, police, friend...)? What history was obtained from this source @ -No Did you review nursing and triage notes (agree or disagree)? Why? @ -I reviewed and agree with nursing and triage notes Were old charts reviewed (outside hosp., previous admission, EMS record, old EKG, old radiological studies, urgent care reports/EKG's, long term records)? Report findings @ -No old charts were reviewed Differential Diagnosis (chest pain, altered mental status, abdominal pain women, abdominal pain men, vaginal bleeding, musculoskeletal, weakness, fever, dyspnea, syncope, headache, dizziness, GI bleed, back pain, seizure, CVA, palpatations, mental health)? @ -Differential Abdominal Pain Women: Appendicitis, Cholecystitis, diverticulosis, ischemic bowel, pancreatitis, hepatitis, UTI, gastroenteritis, AAA, incarcerated hernia, bowel obstruction, constipation, inflammatory bowel, hepatitis, peptic ulcer disease, splenic infarction, perforated viscus, vulvitis, ovarian torsion, PID, kidney stone, placenta abruption, this is not meant to be an all-inclusive list EKG interpreted by me (3pts min.). @ -None done X-rays interpreted by me (1pt min.). @ -None done CT interpreted by me (1pt min.). @ -CT shows pancolitis U/S interpreted by me (1pt. min.). @ -None done What testing was considered but not performed or refused? (CT, X-rays, U/S, labs)? Why? @ -None What meds were considered but not given or refused? Why? @ -None Was smoking cessation discussed for >3mins.? @ -No Were there social determinants of health that impacted care today? How? (Homelessness, low income, unemployed, alcoholism, drug addiction, transportation, low edu. Level, literacy, decrease access to med. care, long term, rehab)? @ -No Was there de-escalation of care discussed even if they declined (Discuss DNR or withdrawal of care, Hospice)? DNR status @ -No What co-morbidities impacted this encounter? (DM, HTN, Smoking, COPD, CAD, Cancer, CVA, ARF, Chemo, Hep., AIDS, mental health diagnosis, sleep apnea, m orbid obesity)? @ -None Was patient admitted / discharged? Hospital course, mention meds given and route, prescriptions, significant lab abnormalities, going to OR and other pertinent info. @ -45-year-old female with abdominal pain abdominal cramping and diarrhea. Vital signs are stable. Patient mild distress upon arrival. Offered analgesic medications however refused. Laboratory evaluation is unremarkable. CT shows pancolitis. Patient reevaluated after IV fluids with improvement of condition. Patient given disposition options she is agreeable discharge. Given outpatient referral to GI doctor. Return precautions discussed. Patient discharged Did you discuss the management of the patient with other professionals (professionals i.e. , PA, ABORIGINAL EDUCATION WORKER COORDINATOR, lab, RT, psych nurse, school social worker, structural steel fitter, teacher, chief operations officer, nurse case management)? Give summary @ -No Was critical care preformed (if so, how long)? @ -No Undiagnosed new problem with uncertain prognosis? @ -No Drug Therapy requiring intensive monitoring for toxicity (Heparin, Nitro, Insulin, Cardizem)? @ -No Were any procedures done? @ -No Diagnosis/symptom? Acute, or Chronic, or Acute on Chronic? Uncomplicated (without systemic symptoms) or Complicated (systemic symptoms)? @ -Colitis Side effects of treatment? @ -No Exacerbation, Progression, or Severe Exacerbation? @ -No Poses a threat to life or bodily function? How? (Chest pain, USA, [place], pneumonia, PE, COPD, DKA, ARF, appy, cholecystitis, CVA, Diverticulitis, Homicidal, Suicidal, threat to staff... and all critical care pts) @ -Yes - Lab Data Result diagrams: 02/18/25 04:32 02/18/25 04:32 Lab Results 02/18/25 02/18/25 02/18/25 Range/Units 04:32 04:32 04:33 WBC 7.83 (4.50-10.00) 10*3/uL RBC 4.72 (4.10-5.20) 10*6/uL Hgb 13.7 (12.0-15.0) g/dL Hct 40.5 (37.2-46.3) % MCV 85.8 (80.0-97.0) fL MCH 29.0 (27.0-32.0) pg MCHC 33.8 (32.0-37.0) g/dL Plt Count 195 (140-440) 10*3/uL MPV 8.9 L (9.5-12.2) fL Immature Gran % (Auto) 0.1 % Neutrophils % 80.9 % Lymphocytes % 11.2 % Monocytes % 6.4 % Eosinophils % 0.9 % Basophils % 0.5 % Immature Gran # 0.01 (0.00-0.04) 10*3/uL Neutrophils # 6.33 (1.80-7.70) 10*3/uL Lymphocytes # 0.88 L (0.90-5.00) 10*3/uL Monocytes # 0.50 (0.20-1.00) 10*3/uL Eosinophils # 0.07 (0.04-0.35) 10*3/uL Basophils # 0.04 (0.00-0.10) 10*3/uL Sodium 134 L (137-145) mmol/L Potassium 4.7 (3.5-5.1) mmol/L Chloride 106 (98-107) mmol/L Carbon Dioxide 18 L (22-30) mmol/L Anion Gap 10 mmol/L BUN 13 (7-17) mg/dL Creatinine 0.83 (0.52-1.04) mg/dL Est GFR (CKD-EPI)AfAm >90 (>60 ml/min/1.73 sqM) Est GFR (CKD-EPI)NonAf 88 (>60 ml/min/1.73 sqM) Glucose 108 H (74-99) mg/dL Calcium 9.6 (8.4-10.2) mg/dL Total Bilirubin 0.6 (0.2-1.3) mg/dL AST 51 H (14-36) U/L ALT 22 (4-34) U/L Alkaline Phosphatase 76 (38-126) U/L Total Protein 6.7 (6.3-8.2) g/dL Albumin 3.9 (3.5-5.0) g/dL Lipase 197 (23-300) U/L Urine Color Light Yellow Urine Appearance Cloudy H (Clear) Urine pH 5.5 (5.0-8.0) Ur Specific [place] 1.004 (1.001-1.035) Urine Protein 1+ H (Negative) Urine Glucose (UA) Negative (Negative) Urine Ketones Negative (Negative) Urine Blood Large H (Negative) Urine Nitrite Negative (Negative) Urine Bilirubin Negative (Negative) Urine Urobilinogen <2.0 (<2.0) mg/dL Ur Leukocyte Esterase Small H (Negative) Urine RBC 17 H (0-5) /hpf Urine WBC 16 H (0-5) /hpf Ur Squamous Epith Cells 1 (0-4) /hpf Urine Bacteria Few H (None) /hpf Urine Mucus Occasional H (None) /hpf Disposition Clinical Impression: Pancolitis Disposition: HOME SELF-CARE Condition: Fair Instructions (If sedation given, give patient instructions): Colitis (ED) Is patient prescribed a controlled substance at d/c from ED?: No Referrals: Mali Hernandez MD [STAFF PHYSICIAN] - 1-2 days Time of Disposition: 07:43
[2025-02-18 04:45] LABS: Bacteria,Urine Few /hpf; Bilirubin,Urine Negative (Negative); Blood,Urine Large (Negative); Color,Urine Light Yellow; Glucose,Urine (UA) Negative (Negative); Ketones,Urine Negative (Negative); Leukocyte Esterase,Urine Small (Negative); Mucus,Urine Occasional /hpf; Nitrite,Urine Negative (Negative); PH, Urine 5.5 (5.0-8.0); Protein,Urine 1+ (Negative); RBC,Urine 17 /hpf (0-5); Specific Gravity,Urine 1.004 (1.001-1.035); Squamous Epithelial Cell,Urine 1 /hpf (0-4); Urobilinogen,Urine <2.0 mg/dL (<2.0); WBC,Urine 16 /hpf (0-5)
[2025-02-18 04:51] LABS: ALT 22 U/L (4-34); AST 51 U/L (14-36); African American GFR (CKD) >90 (>60 ml/min/1.73 sqM); Albumin 3.9 g/dL (3.5-5.0); Alkaline Phosphatase 76 U/L (38-126); Anion Gap 10 mmol/L; Blood Urea Nitrogen 13 mg/dL (7-17); Calcium 9.6 mg/dL (8.4-10.2); Carbon Dioxide 18 mmol/L (22-30); Chloride 106 mmol/L (98-107); Glucose 108 mg/dL (74-99); Lipase 197 U/L (23-300); Non-African American GFR(CKD) 88 (>60 ml/min/1.73 sqM); Potassium 4.7 mmol/L (3.5-5.1); Sodium 134 mmol/L (137-145); Total Protein 6.7 g/dL (6.3-8.2)
--- NOTE | 2025-02-18 07:25 | CT ---
EXAMINATION TYPE: CT abdomen pelvis w con DATE OF EXAM: 02/18/2025 5:16 AM COMPARISON: None. CLINICAL INDICATION: Female, 44 years old with history of abdominal pain; diarrhea and cramping in he r ABD TECHNIQUE: CT of the abdomen and pelvis after IV contrast. Delayed images through the kidneys and sag ittal and coronal reformats were created on a separate workstation. Contrast used:100 mL of Isovue 300 with IV Contrast, (none if empty) Oral contrast used: without Oral Contrast (none if empty) CT DLP: 1442.3 mGycm, Automated exposure control for dose reduction was used. FINDINGS: LOWER CHEST: Unremarkable ABDOMEN LIVER: Mildly enlarged measuring 18.1 cm. No focal lesion seen. Portal venous system is patent. GALLBLADDER AND BILE DUCTS: Gallbladder surgically absent. No biliary ductal dilatation. PANCREAS: Unremarkable. SPLEEN: Unremarkable. ADRENAL GLANDS: Unremarkable. KIDNEYS AND URETERS: No evidence of hydronephrosis or renal calculus. The ureters are unremarkable. PELVIS BLADDER: Bladder collapsed but with mild circumferential wall thickening. REPRODUCTIVE: Uterus anteverted. Some heterogeneous enhancement, suspect underlying fibroid change, f or example, anterior uterine fundus/body measuring 2.4 cm. Both ovaries are visualized. No abnormal f luid collection in the pelvis. ABDOMEN & PELVIS STOMACH AND BOWEL: Tiny hiatal hernia. No evidence of bowel obstruction. Normal appendix. Some scatte red prominent fluid-filled small bowel loops throughout the abdomen. There is moderate circumferentia l wall thickening throughout the entire colon with a mild pericolonic stranding throughout. While the re is mild diverticular change along the proximal sigmoid colon, no focal inflammation centered at a diverticula. PERITONEUM/RETROPERITONEUM: No evidence of pneumoperitoneum or free fluid. VASCULATURE: No evidence of aortic aneurysm. MUSCULOSKELETAL: Mild degenerative disc disease throughout. LYMPH NODES: Clustered mildly enlarged right lower quadrant mesenteric lymph nodes measuring up to 1. 1 cm short axis. SOFT TISSUE/ABDOMINAL WALL: Unremarkable IMPRESSION: 1. Infectious or inflammatory pancolitis with moderate diffuse inflammation. No abscess or free air. 2. Some reactive right lower quadrant mesenteric adenopathy measuring up to 1.1 cm. 3. Incidental: Minimal proximal sigmoid diverticulosis, tiny hiatal hernia, fibroid uterus, status po st cholecystectomy. [facility], , 02/18/2025 7:22 AM
[2025-02-18 08:02] VITALS: BP 110/97; PULSE 95; RESP 16; TEMP 98.1
== END 2025-02-18 08:01 | disposition home or self-care (01) ==
LOC: EC 03:52
DX: K52.9 Noninfective gastroenteritis and colitis, unspecified (principal); Z87.891 Personal history of nicotine dependence; Z88.0 Allergy status to penicillin; Z88.8 Allergy status to other drugs, medicaments and biological substances
CPT/HCPCS: 36415; 80053; 83690; 85025; 81001; 81025; 74177; 99284; 96360; 96361; Q9967